=== PATIENT | female | born 1980 | race Caucasian/White ===

== ENCOUNTER 2018-08-05 12:27 | Inpatient (IN) | payer OTHER ==
[~2018-08-05] VITALS: Ht 175.3 cm; Wt 105.2 kg
[2018-08-05 14:00] VITALS: BP 121/75
[2018-08-05 14:57] LABS: BASO % 1 % (0-3); EOS # 0.1 x10^3/uL (0.0-0.7); EOS % 2 % (0-3); HEMATOCRIT 43.9 % (36.0-47.0); HEMOGLOBIN 14.6 g/dL (12.0-15.5); LYMPH % 32 % (24-48); MEAN CORPUSCULAR HEMOGLOBIN 30 pg (25-35); MEAN CORPUSCULAR HGB CONC 33 g/dL (31-37); MEAN CORPUSCULAR VOLUME 89 fL (79-100); MONO # 0.3 x10^3/uL (0.0-1.1); MONO % 6 % (0-9); NEUT # 3.9 x10^3uL (1.8-7.7); NEUT % 61 % (31-73); PLATELET COUNT 153 x10^3/uL (140-400); RED BLOOD COUNT 4.91 x10^6/uL (3.50-5.40); RED CELL DISTRIBUTION WIDTH 14.2 % (11.5-14.5); WHITE BLOOD COUNT 6.3 x10^3/uL (4.0-11.0)
[2018-08-05 15:04] LABS: PROTHROMBIN TIME PATIENT 21.5 SEC (11.7-14.0)
[2018-08-05] MEDS ORDERED: WARF10TA40 PO (15:09)
[2018-08-05 15:10] LABS: D-DIMER 0.49 ug/mlFEU (0.00-0.50)
[2018-08-05 15:16] LABS: ALBUMIN 3.6 g/dL (3.4-5.0); ALBUMIN/GLOBULIN RATIO 1.1 (1.0-1.7); CALCIUM 9.7 mg/dL (8.5-10.1); CREATININE 0.9 mg/dL (0.6-1.0); GFR 69.3; TOTAL BILIRUBIN 0.2 mg/dL (0.2-1.0); TOTAL PROTEIN 6.8 g/dL (6.4-8.2)
--- NOTE | 2018-08-05 15:49 | NUR ---
Pharmacy Warfarin Dosing Note S:Pharmacy consulted to assist with anticoagulation therapy started with target INR: 2 -3 O:NAFISA CHRISTIANSON is a 38 year old F with DVT/PE LABS: Last INR: 1.9 Last HGB: 14.6 Last HCT: 43.9 Last PLT: 153 Last dose of given on at Previous Regimen: 14MG DAILY Vitamin K given: Drug Interaction Changes: Ongoing Drug Interactions: A:INR of 1.9 is below desired range. Target range for this patient is: 2 -3 P: Warfarin dose: 15 MG Today at 1600 Bridge Therapy: None Next INR due 08/06/18 Pharmacy anticoagulation service will continue to follow. SINDY RUST [facility] [place], 08/05/18 1416
[2018-08-05] MEDS ORDERED: WARFARIN 7.5 MG TABLET. PO ONE (16:00)
--- NOTE | 2018-08-05 17:02 | RAD ---
EXAM: Chest, single view. HISTORY: Short of breath. COMPARISON: None. FINDINGS: A frontal view of the chest obtained. There is no infiltrate, pleural effusion or pneumothorax. The heart is normal in size. There are few tiny calcified granulomas. IMPRESSION: No acute pulmonary finding. Electronically signed by: Joselin Mason MD (08/05/2018 4:59 PM) [facility]
--- NOTE | 2018-08-05 17:05 | RAD ---
Ventilation/perfusion lung scan, 08/05/2018: History: Shortness of breath, previous pulmonary emboli The ventilation study was performed utilizing 10.4 mCi of xenon-133. Activity in the lungs is moderately heterogeneous. There is mild patchy retention in the lungs on the washout phase. The findings suggest obstructive pulmonary disease. Perfusion imaging was performed utilizing 5.5 mCi of technetium 99m MAA. There is similar heterogeneous activity in both lungs. No significant unmatched or segmental perfusion defect is seen. IMPRESSION: 1. Matched ventilation and perfusion abnormalities compatible with COPD. 2. The probability of pulmonary emboli is considered to be low.
--- NOTE | 2018-08-05 18:23 | HP ---
ADMIT DATE: CHIEF COMPLAINT AND HISTORY OF PRESENT ILLNESS: This 38-year-old white female is followed through our office. The patient presented on the day of admission with shortness of breath. It has actually started rather abruptly over the weekend. She has been short of breath since. She also had right-sided chest pain that was worse with the breath, more sharp in nature. She does have a history of a pulmonary embolus and a history of deep vein thrombosis in the past. She was seen in [facility] between Saturday on the day of admission where she had a V/Q scan done with the body of the report indicating a good chance of PE and impression saying a low probability. She was quite short of breath sitting in the office even at rest even though her O2 sat was decent in the office. We elected to admit her for more urgent evaluation for suspected pulmonary embolus. PAST MEDICAL HISTORY: Remarkable for DVT, pulmonary embolus, pneumonia, obstructive sleep apnea, depression, and anxiety. She has had a prior hysterectomy. MEDICATIONS: Meds are brought with the patient, listed on the computer and have been addressed. I believe the only medicine that she takes is warfarin 14 mg a day. FAMILY HISTORY AND SOCIAL HISTORY: Noncontributory. REVIEW OF SYSTEMS: As mentioned above. ALLERGIES: SHE IS ALLERGIC TO IODINATED CONTRAST. PHYSICAL EXAMINATION: GENERAL: She is well-developed, well-nourished white female, short of breath even at rest. VITAL SIGNS: Stable. She is afebrile in the office. HEAD, EYES, EARS, NOSE AND THROAT: Unremarkable. NECK: Supple, no thyromegaly. CHEST: Clear to auscultation, but respiratory rate in the 20s with pursed lip breathing, somewhat diminished breath sounds, but no wheezes present. HEART: Regular rate and rhythm without S3, S4, or murmur. Pulse rate is 85. ABDOMEN: Soft, nontender, without hepatosplenomegaly or mass. EXTREMITIES: Without cyanosis, clubbing or edema. NEUROLOGIC: She is intact. IMPRESSION: 1. Acute shortness of breath with pleuritic chest pain. 2. History of pulmonary embolism. It was suspected same. PLAN: The patient has been admitted. Another V/Q scan will be obtained. Pulmonary will be consulted and the patient will be monitored, managed and treated appropriately. WON DONALD MD DR: Jeffry JOB#: [id number] / [id number]
[2018-08-05 19:15] VITALS: BP 120/73
[2018-08-05] MEDS: methylPREDNISolone SOD SUCC PF 40 MG/ML VIAL. IV SCH (21:17)
[2018-08-05 22:50] VITALS: BP 122/70
[2018-08-06 03:10] VITALS: BP 107/58
[2018-08-06 06:37] LABS: PROTHROMBIN TIME PATIENT 26.8 SEC (11.7-14.0)
[2018-08-06 07:15] VITALS: BP 122/59
[2018-08-06] MEDS: methylPREDNISolone SOD SUCC PF 40 MG/ML VIAL. IV SCH ×2 (07:18→14:00)
--- NOTE | 2018-08-06 09:27 | NUR ---
Pharmacy Warfarin Dosing Note S:Pharmacy consulted to assist with anticoagulation therapy started with target INR: 2 -3 O:NAFISA CHRISTIANSON is a 38 year old F with DVT/PE LABS: Last INR: 2.5 Last HGB: 14.6 Last HCT: 43.9 Last PLT: 153 Last dose of 15mg given on 08/05/18 at 1653 Previous Regimen: 14MG DAILY Vitamin K given: Drug Interaction Changes: Ongoing Drug Interactions: A:INR of 2.5 is within desired range. Target range for this patient is: 2 -3 P: Warfarin dose: 12 MG Today at 1600 Bridge Therapy: None Next INR due 08/07/18 Pharmacy anticoagulation service will continue to follow. SINDY RUST [facility], 08/06/18 8061
[2018-08-06 10:45] VITALS: BP 115/58
--- NOTE | 2018-08-06 11:08 | NUR ---
SS following for discharge planning. SS reviewed pt chart. Pt is from home with spouse and is currently on room air. No discharge needs noted at this time. SS will continue to follow for discharge planning.
[2018-08-06] MEDS ORDERED: ACETAMINOPHEN 325 MG TABLET. PO PRN (13:45)
[2018-08-06 14:45] VITALS: BP 116/66
[2018-08-06] MEDS ORDERED: WARFARIN 3 MG TABLET. PO ONE (16:00)
--- NOTE | 2018-08-06 16:49 | PDOC ---
PULMONARY PROGRESS NOTES Vitals Vital Signs Date Time Temp Pulse Resp B/P (MAP) Pulse Ox O2 Delivery O2 Flow Rate FiO2 08/06/18 14:45 98.3 84 16 116/66 (83) 94 Room Air 98.3 08/05/18 16:19 2.0 Labs Laboratory Tests Test 08/05/18 14:45 08/06/18 04:30 White Blood Count 6.3 x10^3/uL (4.0-11.0) Red Blood Count 4.91 x10^6/uL (3.50-5.40) Hemoglobin 14.6 g/dL (12.0-15.5) Hematocrit 43.9 % (36.0-47.0) Mean Corpuscular Volume 89 fL (79-100) Mean Corpuscular Hemoglobin 30 pg (25-35) Mean Corpuscular Hemoglobin Concent 33 g/dL (31-37) Red Cell Distribution Width 14.2 % (11.5-14.5) Platelet Count 153 x10^3/uL (140-400) Neutrophils (%) (Auto) 61 % (31-73) Lymphocytes (%) (Auto) 32 % (24-48) Monocytes (%) (Auto) 6 % (0-9) Eosinophils (%) (Auto) 2 % (0-3) Basophils (%) (Auto) 1 % (0-3) Neutrophils # (Auto) 3.9 x10^3uL (1.8-7.7) Lymphocytes # (Auto) 2.0 x10^3/uL (1.0-4.8) Monocytes # (Auto) 0.3 x10^3/uL (0.0-1.1) Eosinophils # (Auto) 0.1 x10^3/uL (0.0-0.7) Basophils # (Auto) 0.0 x10^3/uL (0.0-0.2) Prothrombin Time 21.5 SEC (11.7-14.0) 26.8 SEC (11.7-14.0) Prothromb Time International Ratio 1.9 (0.8-1.1) 2.5 (0.8-1.1) D-Dimer (Ivy) 0.49 ug/mlFEU (0.00-0.50) Sodium Level 138 mmol/L (136-145) Potassium Level 4.0 mmol/L (3.5-5.1) Chloride Level 104 mmol/L (98-107) Carbon Dioxide Level 24 mmol/L (21-32) Anion Gap 10 (6-14) Blood Urea Nitrogen 14 mg/dL (7-20) Creatinine 0.9 mg/dL (0.6-1.0) Estimated GFR (Cockcroft-Gault) 69.3 BUN/Creatinine Ratio 16 (6-20) Glucose Level 94 mg/dL (70-99) Calcium Level 9.7 mg/dL (8.5-10.1) Total Bilirubin 0.2 mg/dL (0.2-1.0) Aspartate Amino Transf (AST/SGOT) 11 U/L (15-37) Alanine Aminotransferase (ALT/SGPT) 16 U/L (14-59) Alkaline Phosphatase 56 U/L (46-116) Total Protein 6.8 g/dL (6.4-8.2) Albumin 3.6 g/dL (3.4-5.0) Albumin/Globulin Ratio 1.1 (1.0-1.7) Laboratory Tests Test 08/06/18 04:30 Prothrombin Time 26.8 SEC (11.7-14.0) Prothromb Time International Ratio 2.5 (0.8-1.1) Medications Active Scripts Medications Dose Route/Sig Max Daily Dose Days Date Category Warfarin Sodium 10 Mg Tablet 14 Mg PO DAILY 08/05/18 Reported Impression . NOTE DICTATED OK TO D/C FOLLOW UP WITH DR DONALD WILL SEE IN MY OFFICE PRN THANKS JEANETTE MCGUIRE MD August 06, 2018 16:49
--- NOTE | 2018-08-06 17:23 | NUR ---
Discharge Note: KAMERON CHRISTIANSON Discharge instructions and discharge home medications reviewed with Patient and a copy given. All questions have been answered and understanding verbalized. The following instructions and handouts were given: education on warfarin Discontinued lines and drains: peripheral IV dc'd cath intact. Patient discharged to home with family via private vehicle. pt stable upon discharge
--- NOTE | 2018-08-06 20:16 | PN ---
DATE: 08/06/2018 ROOM: 203. SUBJECTIVE: The patient is awake, alert, feels like her breathing is much better and is approaching her baseline. She still has some pleuritic pain on the right side of her chest with the breath. OBJECTIVE: VITAL SIGNS: Stable. She is afebrile. Her O2 sats are good on room air. CHEST: Clear. HEART: Regular. ABDOMEN: Benign. IV steroids were added to her warfarin yesterday and is likely the reason for improvement. I have left a prescription for prednisone taper if pulmonary sees her today and feels she can be dismissed. Chest x-ray showed no acute pulmonary findings. V/Q scan was negative for pulmonary emboli, but showed some matched ventilation perfusion abnormalities consistent with COPD, which was discussed with the patient and her need to stop smoking. IMPRESSION: Pleuritic chest pain and shortness of breath, likely due to chronic obstructive pulmonary disease as workup for pulmonary embolus is negative. PLAN: Probable discharge later today on a prednisone taper. Discontinue smoking. I had discussed with her changing to probably Xarelto as anticoagulant on followup in the office as she has trouble remembering her Coumadin always and has a history of nine pulmonary embolisms in the past. WON DONALD MD DR: RAJWINDER/lilli JOB#: [id number] / [id number]
--- NOTE | 2018-08-07 03:48 | CONS ---
DATE OF CONSULTATION: 08/06/2018 ATTENDING PHYSICIAN: Niko Amaro MD CONSULTING PHYSICIAN: Jeanette Mcguire MD REASON FOR CONSULTATION: The patient is seen in pulmonary consultation at the request of Dr. Amaro for history of DVT, PE. HISTORY OF PRESENT ILLNESS: The patient is a 38-year-old that has been diagnosed with antiphospholipid syndrome, she has been on anticoagulant for long time. She has had recurrent DVT x 2, multiple pulmonary embolism. She presented with increasing shortness of breath and deep sharp chest discomfort. She was admitted. A V/Q scan was obtained. I reviewed the V/Q and V/Q revealed no significant unmatched perfusion defects. The patient is currently being managed with Coumadin. Upon admission, her INR was 1.9, today it is 2.5. She now feels better. She denies any pleuritic type of discomfort. She is able to take in a deep breath without having difficulty. She denies hemoptysis. No syncope or any syncopal episode. PAST MEDICAL HISTORY: 1. Antiphospholipid syndrome with recurrent DVT and PE. 2. Prior history of pneumonia. 3. Obstructive sleep apnea. 4. Anxiety and depression. PAST SURGICAL HISTORY: Status post hysterectomy. MEDICATIONS: List was reviewed. ALLERGIES: CONTRAST DYE. FAMILY HISTORY: Unknown. She was adopted. REVIEW OF SYSTEMS: As indicated above; otherwise, a 10-point system was reviewed and negative. PHYSICAL EXAMINATION: GENERAL: The patient did not appear to be in any respiratory distress. VITAL SIGNS: Currently on room air saturation greater than 92%. HEENT: Eyes, the sclerae were nonicteric. NECK: Jugular venous distention was not elevated. No lymphadenopathy. CHEST: Full expansion. LUNGS: Adequate airway flow with no wheezes. CARDIOVASCULAR: Regular rate and rhythm with S1, S2, no S3. ABDOMEN: Soft, nontender, nondistended. EXTREMITIES: No clubbing, cyanosis or edema. LABORATORY DATA: As indicated above. INR was 2.5. IMPRESSION: Recurrent deep venous thrombosis and pulmonary embolism in a patient with antiphospholipid syndrome, presented with chest pain, suspect chest pain not related to recurrent pulmonary embolism. She is currently anticoagulated. Her INR was 2.5. A V/Q scan revealed no unmatched perfusion defects. Recommend discharge home, if she continues to have difficulty with maintaining therapeutic INR, recommend one of the other novel agents for lifetime anticoagulation. I do appreciate the privilege in sharing in the patient's care. JEANETTE MCGUIRE MD DR: LEONA/lilli JOB#: [id number] / [id number]
--- NOTE | 2018-08-07 11:22 | DS ---
DATE OF DISCHARGE: 08/06/2018 PRIMARY DIAGNOSES: Pleuritic chest pain with shortness of breath. ADDITIONAL DIAGNOSES: 1. Antiphospholipid syndrome with history of deep venous thrombosis and pulmonary embolism x 9 in the past. 2. Shortness of breath. 3. Chronic anticoagulation therapy. CHIEF COMPLAINT AND HISTORY OF PRESENT ILLNESS: This 38-year-old white female was admitted through the office with right-sided deep pleuritic chest pain and shortness of breath with a strong suspicion for recurrent pulmonary embolism. Upon questioning, the patient has trouble always remembering to take her warfarin at home. SUMMARY OF STAY: The patient was admitted because of CONTRAST ALLERGY, had a V/Q scan that showed no evidence of pulmonary embolism, but matched ventilation/perfusion abnormalities compatible with COPD. She was started on some Solu-Medrol and by the following morning, she felt her breathing was back to normal. It was discussed with her in detail the need to stop smoking as well as the fact that she probably ought to be on one of the newer oral anticoagulants instead of Coumadin upon followup in the office and she was agreeable. INR during the stay checked x twice was 1.9 and 2.5. DISPOSITION: The patient is discharged to home. DIET: Regular diet. ACTIVITY: As tolerated, office within the week. DISCHARGE MEDICATIONS: Regular home warfarin, but again, we will look towards switching at the time of followup. She is also on a prednisone taper at the time of discharge. WON DONALD MD DR: RAJWINDER/lilli JOB#: [id number] / [id number]
== END 2018-08-06 17:25 | disposition home or self-care (01) | DRG 204 ==
LOC: 2 NORTH 13:15
PROVIDERS: ADMIT Family Medicine; ATTEND Family Medicine
DX: R07.81 Pleurodynia (principal); D68.61 Antiphospholipid syndrome; G47.33 Obstructive sleep apnea (adult) (pediatric); F41.9 Anxiety disorder, unspecified; F32.9 Major depressive disorder, single episode, unspecified; J44.9 Chronic obstructive pulmonary disease, unspecified; Z90.710 Acquired absence of both cervix and uterus; Z91.041 Radiographic dye allergy status; Z87.01 Personal history of pneumonia (recurrent); Z79.01 Long term (current) use of anticoagulants; Z86.718 Personal history of other venous thrombosis and embolism
CPT/HCPCS: 36415; 71045; 78582; 80053; 85025; 85379; 85610; 96374; A9540; A9558; J2920